=== PATIENT | male | born 1960 | race Two or more races ===

== ENCOUNTER 2022-06-20 17:06 | Emergency (ER) | payer OTHER ==
[~2022-06-20] VITALS: Ht 172.7 cm; Wt 122.0 kg
[2022-06-20] MEDS ORDERED: KETOROLAC TROMETH 30 MG/ML 1ML VIAL IV ONE (23:30)
[2022-06-21] MEDS ORDERED: BACITRACIN INJ 50000 UNIT VIAL TOP ONE (01:45)
[2022-06-21] MEDS ORDERED: BACITRACIN TOP OINT 1 UD PKG TOP ONE (02:00)
[2022-06-21] MEDS ORDERED: IBUP800T26 PO (02:11)
[2022-06-21 04:10] VITALS: BP 117/80
== END 2022-06-21 04:17 | disposition home or self-care (01) ==
LOC: EDBD 17:06 → ER 17:06
DX: S92.514A Nondisplaced fracture of proximal phalanx of right lesser toe(s), initial encounter for closed fracture (principal); S20.212A Contusion of left front wall of thorax, initial encounter; S80.01XA Contusion of right knee, initial encounter; S50.312A Abrasion of left elbow, initial encounter; S50.311A Abrasion of right elbow, initial encounter; V23.4XXA Motorcycle driver injured in collision with car, pick-up truck or van in traffic accident, initial encounter; Y93.89 Activity, other specified; Y92.410 Unspecified street and highway as the place of occurrence of the external cause; Y99.8 Other external cause status
CPT/HCPCS: 71101; 73080; 73130; 73552; 73630; 96374; 99284; J1885